=== PATIENT | female | born 1970 | race Two or more races ===

== ENCOUNTER 2023-02-02 14:27 | Outpatient (AMB) | payer OTHER, SELFPAY ==
[2023-02-02 14:40] VITALS: BMI 35.4
--- NOTE | 2023-02-02 14:40 | A.OFFVIS_ITS ---
Intake VS Expanded 02/02/23 14:40 02/07/23 13:20 Height 4 ft 11 in 4 ft 11 in Weight 175 lb 0.752 oz 175 lb BMI 35.4 35.3 Intake Visit Reasons: Diabetes, obesity Medication List - Last Reconciled 02/07/[address], LDN dulaglutide (Trulicity) 1.5 mg subcut QWEEK HPI Nutrition Presentation Details Pt presents for MNT for T2DM. Pt was referred by JILLIAN Pritchett from [facility] Pt reports interest in losing weight . Pt verbalizing needing assistance with meal planning and is planning to join the gym in the near future. Typical meal intake B: coffee figh bars and from vending machine L: chips from vending machine, water crackers, D: rice/beans/chicken, water snack: crackers , water or nothing after dinner physical activity: sedentary ETOH/SMoking denies food frequency fruit: 0-1/d vegetables: 0-2/d dairy: 3/d starches > 15 serving/d protein foods: poultry, beef/eggs 12 oz/d REI-Cbxkzxd-Lj.Jeor Equation Height 4 ft 11 in Weight 175 lb Resting Metabolic Rate 1322.62 Calculated Activity Level Sedentary Calories Needed to Maintain Weight 1587.14 Diagnosis Nutrition problem #1 food nutri know defi As related to (etiology) #1 food allergy and diagnosis As evidenced by (sign/symptom) #1 food recall and high BMI Most Recent Diabetes Results: No Data to Display Assessment & Plan Assessment & Plan (1) Diabetes: Code(s): E11.9 - Type 2 diabetes mellitus without complications Plan: wt: 80 Est kcal needs as per MSJ: 1500 (40% carb, 30% protein/fat) Est fluid needs as per 30 ml/d: 2000 Est prot per day as per 1 g/kg bw: 80 Recommend fiber intake : 8-10 g per day and gradually increase to 25-28 g per day for women and 35-38 g for men or as tolerated Recommend sodium intake per day : less than 2000 mg Educated patient on: ( R = reviewed V = verbalizes understanding N/R = needs review N/A = not applicable * Food sources of carbohydrate, adequate serving sizes and its role in various health conditions: R * Differences between complex carbohydrates a simple carbohydrates, role of fiber in diet: R * Differences between types of fats and role in diet (mono on saturated fat fatty acids, saturated fatty acids, trans fats): R basic * Food sources of sodium in salt and healthy modifications for heart health in kidney health: R * Healthy plate method concept: R V * Physical activity: Benefits a precaution: R V * Hypoglycemia protocol (rule of 15): NR * Dietary prevention of Hyperglycemia: R Patient Instructions: Work on having 3 balanced meals per day HAve a meal replacement at lunch see [id number] tyler meal plan Coding Level of Care Code Nutr Indiv Intake (26102) Diagnoses Diabetes E11.9 Time Spent (min) 30
[2023-02-07 13:20] VITALS: BMI 35.3
== END 2023-02-02 15:24 | disposition home or self-care (01) ==
PROVIDERS: PCP Physician Assistant Medical; Visit Provider Dietitian, Registered
DX: E11.9 Type 2 diabetes mellitus without complications (principal)

== ENCOUNTER → 2023-02-02 14:27 | Outpatient (BNVA) | payer OTHER, SELFPAY | PROVIDERS: PCP Physician Assistant Medical; Visit Provider Dietitian, Registered | DX: E11.9 Type 2 diabetes mellitus without complications (principal); Z71.3 Dietary counseling and surveillance | CPT/HCPCS: 97802 ==